=== PATIENT | male | born 1960 | race Caucasian/White ===

== ENCOUNTER 2018-04-03 14:00 | Inpatient (IN) | payer BC ==
[2018-04-16] MEDS ORDERED: Dexamethasone 4 mg/ml Vial ONE (06:10)
[2018-04-16] MEDS ORDERED: Midazolam HCl 2 mg/2 ml Vial ONE (06:10)
[2018-04-16] MEDS ORDERED: Fentanyl 100 MCG/2 ML VIAL ONE ×3 (06:10→13:32)
[2018-04-16] MEDS ORDERED: Lidocaine 1% (PF) 30 ML VIAL ONE (06:43)
[2018-04-16] MEDS ORDERED: Fentanyl 250 MCG/5 ML VIAL ONE (07:01)
[2018-04-16] MEDS ORDERED: Ondansetron HCl/PF 4 MG/2 ML Vial IVP PRN ×2 (07:05→11:08)
[2018-04-16] MEDS ORDERED: cefOXitin Sodium/Dextrose,Iso 2 GM in Premix Bag 1 BAG IVPB SCH (07:15)
[2018-04-16] MEDS ORDERED: Albumin 5% 0 ML ONE (08:51)
[2018-04-16] MEDS ORDERED: Insulin Regular 300 UNITS/3 ML VIAL ONE (09:36)
[2018-04-16] MEDS ORDERED: Indocyanine Green 25 MG/10 ML VIAL ONE (09:58)
[2018-04-16] MEDS ORDERED: Albuterol Sulfate HFA (OR ONLY) ONE (10:35)
[2018-04-16] MEDS ORDERED: ceFOXitin 1 GM VIAL ONE (10:51)
[2018-04-16] MEDS ORDERED: Promethazine HCl 25 MG/ML VIAL IM PRN ×2 (11:08→14:33)
[2018-04-16] MEDS ORDERED: Promethazine HCl 25 MG/ML VIAL SLOW IVP PRN (11:08)
[2018-04-16] MEDS ORDERED: hydrALAZINE 20 MG/ML VIAL ONE (12:45)
[2018-04-16] MEDS ORDERED: hydrALAZINE 20 MG/ML VIAL SLOW IVP PRN (14:33)
[2018-04-16] MEDS ORDERED: Fentanyl 100 MCG/2 ML VIAL SLOW IVP PRN (14:33)
[2018-04-16] MEDS ORDERED: Ondansetron PF 4 MG/2 ML Vial IVP PRN (14:33)
[2018-04-16] MEDS ORDERED: Post-Op Insulin Drip Protocol IVPB ONE (14:33)
[2018-04-16] MEDS ORDERED: Dextrose 50% Abboject 50 ML SYRINGE SLOW IVP PRN (14:42)
[2018-04-16] MEDS ORDERED: Insulin Regular 300 UNITS/3 ML VIAL SC PRN (14:42)
[2018-04-16] MEDS ORDERED: Dextrose 5% in Water 1,000 ML IV PRN (14:42)
[2018-04-16] MEDS ORDERED: Bupivacaine HCl 0.5%/Epinephrine 1:200,000/PF 30 ml Vial ONE (15:14)
[2018-04-16] MEDS: Acetaminophen 1,000 MG in Premix Bag 1 BAG IVPB SCH ×2 (15:14→20:24)
[2018-04-16] MEDS: Sodium Chloride 0.9% 1,000 ML IV SCH (16:18)
[2018-04-16] MEDS: Fentanyl 100 MCG/2 ML VIAL SLOW IVP PRN ×3 (17:54→22:06)
[2018-04-16] MEDS: Famotidine/PF 20 mg/2ml Vial SLOW IVP SCH (20:24)
[2018-04-16] MEDS: Enoxaparin Sodium 40 MG/0.4 ML SYRINGE SC SCH (20:24)
[2018-04-16] MEDS: cefOXitin Sodium/Dextrose,Iso 2 GM in Premix Bag 1 BAG IVPB SCH (20:25)
[2018-04-16] MEDS: Famotidine 20 MG TAB PO SCH (20:29)
[2018-04-16] MEDS ORDERED: Lidocaine 1% PF 5 ML VIAL ONE (22:43)
[2018-04-16] MEDS ORDERED: Glycopyrrolate 0.2 MG/ML 5 ML SYRINGE ONE (22:43)
[2018-04-16] MEDS ORDERED: Succinylcholine Chloride 20 MG/ML 10 ml SYRINGE FS ONE (22:43)
[2018-04-16] MEDS ORDERED: Ondansetron PF 4 MG/2 ML Vial ONE (22:43)
[2018-04-16] MEDS ORDERED: PROPOFOL 200 MG/20 ML VIAL ONE (22:43)
[2018-04-17] MEDS: Fentanyl 100 MCG/2 ML VIAL SLOW IVP PRN ×5 (01:20→23:04)
[2018-04-17] MEDS: Acetaminophen 1,000 MG in Premix Bag 1 BAG IVPB SCH ×2 (02:11→09:13)
[2018-04-17] MEDS: cefOXitin Sodium/Dextrose,Iso 2 GM in Premix Bag 1 BAG IVPB SCH (03:05)
[2018-04-17] MEDS: Sodium Chloride 0.9% 1,000 ML IV SCH ×2 (03:06→07:00)
[2018-04-17 04:54] LABS: #Lymphocytes 0.7 thou/uL (1.20-3.40); #Monocytes 0.9 thou/uL (0.11-0.59); #Neutrophils 13.8 thou/uL (1.40-6.50); %Basophils 0.1 % (0.0-1.0); %Lymphocytes 4.3 % (21.0-51.0); %Monocytes 5.7 % (0.0-10.0); %Neutrophils 89.9 % (42.0-75.0); Hemoglobin 10.2 g/dL (14.0-18.0); Mean Corpuscular HGB CONC 32.7 g/dL (32.0-36.0); Mean Corpuscular Hemoglobin 26.6 pg (27.0-31.0); Mean Corpuscular Volume 81.5 fL (78.0-98.0); Mean Platelet Volume 9.8 fL (7.4-10.4); Platelet Count 221 thou/uL (130-400); RBC Distribution Width 13.9 % (11.5-14.5); Red Blood Cell (RBC) Count 3.83 mill/uL (4.70-6.10); White Blood Cell (WBC) Count 15.4 thou/uL (4.8-10.8)
[2018-04-17 05:10] LABS: Anion Gap 15 mmol/L (10-20); BUN (Urea Nitrogen) 20 mg/dL (8.4-25.7); Calc. Creatinine Clearance 72 mL/min (70-130); Calcium 8.2 mg/dL (7.8-10.44); Carbon Dioxide 20 mmol/L (22-29); Chloride 105 mmol/L (98-107); Estimated GFR-MDRD 44; Glucose 160 mg/dL (70-105); Potassium 4.4 mmol/L (3.5-5.1); Sodium 136 mmol/L (136-145)
[2018-04-17] MEDS ORDERED: Sodium Chloride 0.9% 500 ML IV SCH (08:30)
[2018-04-17] MEDS: Famotidine 20 MG TAB PO SCH ×2 (08:36→20:24)
[2018-04-17] MEDS: Famotidine/PF 20 mg/2ml Vial SLOW IVP SCH ×2 (08:39→20:25)
--- NOTE | 2018-04-17 13:42 | OP ---
DATE OF PROCEDURE: 04/16/2018 PREOPERATIVE DIAGNOSIS: Ascending colon mass. POSTOPERATIVE DIAGNOSIS: Ascending colon mass. PROCEDURE PERFORMED: Da Casey laparoscopic right colectomy with isoperistaltic anastomosis. ANESTHESIA: General. ESTIMATED BLOOD LOSS: 50 mL. COMPLICATIONS: None. SPECIMEN: Right colon. TECHNIQUE: The patient has had mechanical and antibiotic bowel prep preop. He underwent tap blocks in preop holding, taken to the operating room and laid supine on operating room table. After general anesthetic was obtained, a Owusu was placed. The abdomen was prepped and draped in a sterile fashion. Left subcostal 5 mm Optiview trocar was placed in usual fashion and high-flow pneumoperitoneum was obtained. Left upper lateral 11 mm assist port was placed. Robot camera port was placed just to the left of umbilicus. Robot assist port was placed in the left lower quadrant. The 5 mm subcostal port was switched out to a robot stapler port. The patient was placed in Trendelenburg position. All ports were docked to the robot. The right colon mesentery was mobilized in a medial to lateral nature. The ileocolic vessels were isolated and taken low. Right ureter was found excluded from the dissection. Lateral attachments were taken down using cautery. Hepatic flexure was mobilized. Care was taken to avoid injury to the duodenum. Robot vessel sealer was used to take the small bowel mesentery right up towards the small bowel in the terminal ileum area. Robot stapler was fired across the proximal transverse colon. A reload was fired across the terminal ileum. The intestine was able to brought up against the colon in isoperistaltic fashion. It was held using a Vicryl suture placed through the end of the staple line of the colon, the more proximal small bowel, and mesenteric. This was used to hold the two ends together. Enterotomy was made on the end of the small bowel and more distal on the transverse colon, and an isoperistaltic anastomosis was performed by firing a stapler with the robot, then closing the common enterotomy colotomy using 2 rows of Vicryl running suture. There was no tension on the anastomosis. No bleeding in the abdomen. All needles were accounted for and removed from the abdomen. The robot stapler port was closed using GraNee needle 0 Vicryl tie. All ports were removed under camera visualization without bleeding. A pneumoperitoneum was let down. Muscle-splitting incision made in the right lower quadrant and the specimen was removed using Miki wound retractor. This fascial defect was closed in 2 layers using PDS suture. This wound was irrigated using sterile solution and closed using 3-0 Vicryl, 4-0 Monocryl, and Dermabond. The patient was sent to Recovery in stable condition. All instrument counts, needle counts, and lap counts were correct. Job ID: [id number]
[2018-04-17] MEDS ORDERED: Sodium Chloride 0.9% 1,000 ML IV SCH (13:57)
[2018-04-17] MEDS ORDERED: Dextrose 5% in Water 1,000 ML IV PRN (14:01)
[2018-04-17] MEDS ORDERED: Dextrose 50% Abboject 50 ML SYRINGE SLOW IVP PRN (14:01)
[2018-04-17] MEDS ORDERED: Acetaminophen 1,000 MG in Premix Bag 1 BAG IVPB PRN (14:10)
--- NOTE | 2018-04-17 14:51 | PRG ---
DATE OF SERVICE: 04/17/2018 SUBJECTIVE: Postop day one right colectomy. Mr. García was a little dizzy when he stood up earlier. His sugars were fairly well controlled. No significant nausea. He is on the clear liquid diet. OBJECTIVE: VITAL SIGNS: He is afebrile. Vital signs are stable now. He is due to void after the catheter has removed. ABDOMEN: Soft, appropriately tender, minimally distended. Wounds are healing well. LABORATORY DATA: White blood cell count is 15, hemoglobin 10. Sugars are 177 to 249. ASSESSMENT: Postop day one, right colectomy. We will stop insulin drip. Transferred to floor where he can be more active. Job ID: [id number]
[2018-04-17] MEDS: Insulin NPH/Reg Insulin Hm 300 UNITS/3 ML VIAL SC SCH (15:19)
[2018-04-17] MEDS: Losartan 25 MG TAB PO SCH (20:24)
[2018-04-17] MEDS: Hydrochlorothiazide 25 MG TAB PO SCH (20:24)
[2018-04-17] MEDS: Enoxaparin Sodium 40 MG/0.4 ML SYRINGE SC SCH (20:25)
[2018-04-17] MEDS ORDERED: Non-Formulary Item 1 EACH (Losartan Potassium [Losartan Potassium] 1 TAB) PO SCH (21:00)
[2018-04-17] MEDS ORDERED: Hydrochlorothiazide 25 MG TAB PO SCH (21:00)
[2018-04-18] MEDS: HumaLOG 300 UNITS/3 ML VIAL SC PRN ×4 (00:34→23:19)
[2018-04-18] MEDS: Fentanyl 100 MCG/2 ML VIAL SLOW IVP PRN ×4 (01:52→23:24)
[2018-04-18 04:56] LABS: #Basophils 0.1 thou/uL (0.0-0.2); #Lymphocytes 1.3 thou/uL (1.20-3.40); #Monocytes 1.6 thou/uL (0.11-0.59); #Neutrophils 13.3 thou/uL (1.40-6.50); %Basophils 0.3 % (0.0-1.0); %Eosinophils 0.1 % (0.0-10.0); %Lymphocytes 7.9 % (21.0-51.0); %Monocytes 9.9 % (0.0-10.0); %Neutrophils 81.9 % (42.0-75.0); Hemoglobin 7.5 g/dL (14.0-18.0); Mean Corpuscular HGB CONC 32.6 g/dL (32.0-36.0); Mean Corpuscular Volume 82.7 fL (78.0-98.0); Platelet Count 222 thou/uL (130-400); RBC Distribution Width 14.1 % (11.5-14.5); Red Blood Cell (RBC) Count 2.78 mill/uL (4.70-6.10); White Blood Cell (WBC) Count 16.3 thou/uL (4.8-10.8)
[2018-04-18 05:16] LABS: Anion Gap 14 mmol/L (10-20); BUN (Urea Nitrogen) 28 mg/dL (8.4-25.7); Calc. Creatinine Clearance 71 mL/min (70-130); Calcium 8.6 mg/dL (7.8-10.44); Carbon Dioxide 24 mmol/L (22-29); Chloride 100 mmol/L (98-107); Estimated GFR-MDRD 44; Glucose 310 mg/dL (70-105); Potassium 4.7 mmol/L (3.5-5.1); Sodium 133 mmol/L (136-145)
[2018-04-18] MEDS: Insulin NPH/Reg Insulin Hm 300 UNITS/3 ML VIAL SC SCH ×2 (08:29→17:41)
[2018-04-18] MEDS: Famotidine 20 MG TAB PO SCH ×2 (08:29→20:30)
[2018-04-18] MEDS: Famotidine/PF 20 mg/2ml Vial SLOW IVP SCH ×2 (08:29→20:32)
[2018-04-18 14:48] LABS: #Lymphocytes 1.2 thou/uL (1.20-3.40); #Monocytes 1.5 thou/uL (0.11-0.59); #Neutrophils 12.3 thou/uL (1.40-6.50); %Basophils 0.2 % (0.0-1.0); %Eosinophils 0.2 % (0.0-10.0); %Lymphocytes 8.2 % (21.0-51.0); %Monocytes 10.1 % (0.0-10.0); %Neutrophils 81.3 % (42.0-75.0); Hemoglobin 6.9 g/dL (14.0-18.0); Mean Corpuscular HGB CONC 32.4 g/dL (32.0-36.0); Mean Corpuscular Hemoglobin 26.6 pg (27.0-31.0); Mean Corpuscular Volume 82.2 fL (78.0-98.0); Mean Platelet Volume 9.9 fL (7.4-10.4); Platelet Count 227 thou/uL (130-400); RBC Distribution Width 13.9 % (11.5-14.5); Red Blood Cell (RBC) Count 2.61 mill/uL (4.70-6.10); White Blood Cell (WBC) Count 15.1 thou/uL (4.8-10.8)
[2018-04-18] MEDS: Acetaminophen 500 MG TAB PO PRN ×2 (15:40→23:25)
--- NOTE | 2018-04-18 17:08 | CT ---
CT OF ABDOMEN AND PELVIS PERFORMED WITH CONTRAST ENHANCEMENT: 04/18/18 HISTORY: Patient had laparoscopic resection of right colon and developed a low hemoglobin. This was done to ev aluate for significant bleed. Limited contrast due to low GFR. No oral contrast administered. There are bibasilar atelectatic lung changes seen with tiny effusions. The liver, spleen, and pancreas regions are unremarkable. The gallbladder is somewhat elongated in ap pearance. Right and left adrenal gland and right and left kidneys are normal in size. Postoperative changes the right colon are noted. Surgical chain type sutures are present in this viji on. There is numerous unopacified small bowel loops in this area. This makes it difficult to evaluate for peritoneal blood versus unopacified bowel. There is some fluid present in this region and fluid density along the liver which could just represent ascites related to the surgery. It could possibly indicate a subcapsular hematoma. Some of the unopacified density in the right mid abdomen inferior to the surgical site is of somewhat higher density. I still favor that this represents unopacified aurora l rather than blood. Also of note is a fat density mass-like area in the left abdomen. It measures approximately 12 cm in size. It arises directly anterior to Gerota's fascia on the left side. The only unusual feature to th is is it does appear to displace some of the small bowel loops in this area and the possibility that this represents a fat containing retroperitoneal mass is not excluded. A low grade liposarcoma is not totally excluded. Some of this may be on the basis of the surgery and a followup examination would b e recommended. CT OF PELVIS PERFORMED WITH CONTRAST ENHANCEMENT: No significant free fluid noted. Review of osseous structures show some arthritic changes of the spine. Lipoma is seen along the left posterolateral abdominal wall of incidental note. IMPRESSION: 1. Bibasilar lung changes consistent with atelectasis or infiltrate with tiny effusions. 2. Free fluid seen within the abdomen. There is fluid around the liver which could be related to some ascites. It could potentially be a subcapsular hematoma. There is also fluid density tracking i n the right pericolic gutter. 3. Postop right hemicolectomy change. Numerous unopacified bowel loops in this region make asses sment difficult for intermingled hematoma in this area. If patient's hemoglobin continues falling, CT with oral contrast may be helpful. 4. Fat density lesion in the left side of the abdomen directly anterior to Gerota's fascia on th e left. It measures 12 cm in size. One feature of this that is worrisome is that it appears to displa ce small bowel loops. It could indicate the possibility of some type of low grade liposarcoma. I woul d recommend followup CT imaging in approximately two months after some of the resolution of the posto p change may make assessment of this area easier. Findings discussed with Dr. Quintanilla. POS: [facility]
[2018-04-18] MEDS: Enoxaparin Sodium 40 MG/0.4 ML SYRINGE SC SCH (18:10)
--- NOTE | 2018-04-18 18:50 | PRG ---
DATE OF SERVICE: 04/18/2018 SUBJECTIVE: Mr. García is status post right colectomy on 04/16/2018. He states that he is doing well. He has had bowel movements and is tolerating his diet without nausea or abdominal pain. He denies any shortness of breath, chest pain, lightheadedness, or dizziness, and has been ambulating without problems. On physical examination, his wounds are healing well. His vital signs are stable. Bowel sounds are presents. However, he has had a significant decrease in his H and H from 10 and 31 yesterday to 7.5 and 23 today. I rechecked this afternoon and had dropped a little further to 6.9 and 21. He denies any gross blood in his stool and the nurse confirms this, so I sent him for a CT scan. He has a small amount of free fluid around the liver and in the paracolic gutter, but no large hemoperitoneum. I suspect that his anemia is likely multifactorial and we will simply observe this for now. If he drops any further, he may require transfusion, but if he stabilizes and remains asymptomatic, he will likely go home tomorrow. Job ID: [id number]
[2018-04-18] MEDS: Losartan 25 MG TAB PO SCH (20:31)
[2018-04-18] MEDS: Hydrochlorothiazide 25 MG TAB PO SCH (20:32)
[2018-04-19] MEDS: Fentanyl 100 MCG/2 ML VIAL SLOW IVP PRN ×3 (04:22→11:03)
[2018-04-19] MEDS: HumaLOG 300 UNITS/3 ML VIAL SC PRN ×2 (06:22→14:19)
[2018-04-19 06:34] LABS: #Lymphocytes 1.5 thou/uL (1.20-3.40); #Monocytes 1.1 thou/uL (0.11-0.59); #Neutrophils 8.9 thou/uL (1.40-6.50); %Basophils 0.1 % (0.0-1.0); %Eosinophils 0.4 % (0.0-10.0); %Lymphocytes 12.6 % (21.0-51.0); %Monocytes 9.6 % (0.0-10.0); %Neutrophils 77.3 % (42.0-75.0); Hemoglobin 6.5 g/dL (14.0-18.0); Mean Corpuscular HGB CONC 32.4 g/dL (32.0-36.0); Mean Corpuscular Hemoglobin 26.6 pg (27.0-31.0); Mean Platelet Volume 9.7 fL (7.4-10.4); Platelet Count 185 thou/uL (130-400); RBC Distribution Width 14.1 % (11.5-14.5); Red Blood Cell (RBC) Count 2.44 mill/uL (4.70-6.10); White Blood Cell (WBC) Count 11.5 thou/uL (4.8-10.8)
[2018-04-19] MEDS: Famotidine 20 MG TAB PO SCH ×2 (08:37→21:52)
[2018-04-19] MEDS: Insulin NPH/Reg Insulin Hm 300 UNITS/3 ML VIAL SC SCH ×2 (08:47→17:46)
[2018-04-19] MEDS: Famotidine/PF 20 mg/2ml Vial SLOW IVP SCH ×2 (08:52→21:53)
[2018-04-19 16:49] VITALS: BMI 32.3
[2018-04-19 20:24] LABS: #Basophils 0.1 thou/uL (0.0-0.2); #Eosinphils 0.1 thou/uL (0.0-0.7); #Monocytes 1.1 thou/uL (0.11-0.59); #Neutrophils 10.4 thou/uL (1.40-6.50); %Basophils 0.5 % (0.0-1.0); %Eosinophils 0.5 % (0.0-10.0); %Lymphocytes 14.9 % (21.0-51.0); %Monocytes 7.9 % (0.0-10.0); %Neutrophils 76.3 % (42.0-75.0); Hemoglobin 8.5 g/dL (14.0-18.0); Mean Corpuscular HGB CONC 32.3 g/dL (32.0-36.0); Mean Corpuscular Hemoglobin 26.6 pg (27.0-31.0); Mean Corpuscular Volume 82.5 fL (78.0-98.0); Mean Platelet Volume 9.8 fL (7.4-10.4); Platelet Count 236 thou/uL (130-400); RBC Distribution Width 14.3 % (11.5-14.5); Red Blood Cell (RBC) Count 3.19 mill/uL (4.70-6.10); White Blood Cell (WBC) Count 13.7 thou/uL (4.8-10.8)
--- NOTE | 2018-04-19 20:36 | PRG ---
DATE OF SERVICE: 04/19/2018 SUBJECTIVE: Mr. García is doing well today. He did have a unit of blood transfused. He feels much better. OBJECTIVE: VITAL SIGNS: 99.7, 72, 154/65. He does not feel his leak. His hemoglobin will be rechecked in the evening and in the morning. He is tolerating his diet. He has had 3 bowel movements. He describes them as dark, but not bloody. LUNGS: Clear to auscultation. CARDIAC: Regular rhythm without murmur or gallop. ABDOMEN: Soft, nontender and nondistended. EXTREMITIES: Unremarkable. ASSESSMENT AND PLAN: Bleeding of uncertain etiology. A CAT scan of his abdomen and pelvis obtained yesterday at 3:33 p.m. was unremarkable. There was some free fluid in the abdomen, which was described as possibly related to ascites, but this may represent some postoperative bleeding as there is no evidence of gastrointestinal bleeding. Pathology is pending. Postoperative bleeding. Check a CBC tonight and in the morning. If he is stable, consider discharge to home in the morning. Job ID: [id number]
[2018-04-19] MEDS: Enoxaparin Sodium 40 MG/0.4 ML SYRINGE SC SCH (21:51)
[2018-04-19] MEDS: Losartan 25 MG TAB PO SCH (21:52)
[2018-04-19] MEDS: Hydrochlorothiazide 25 MG TAB PO SCH (21:52)
[2018-04-20] MEDS: HumaLOG 300 UNITS/3 ML VIAL SC PRN ×3 (00:02→13:05)
[2018-04-20] MEDS: Acetaminophen 500 MG TAB PO PRN (00:03)
[2018-04-20 06:12] LABS: #Eosinphils 0.2 thou/uL (0.0-0.7); #Lymphocytes 1.5 thou/uL (1.20-3.40); #Neutrophils 9.8 thou/uL (1.40-6.50); %Basophils 0.4 % (0.0-1.0); %Eosinophils 1.5 % (0.0-10.0); %Lymphocytes 11.7 % (21.0-51.0); %Monocytes 8.3 % (0.0-10.0); %Neutrophils 78.1 % (42.0-75.0); Mean Corpuscular HGB CONC 33.3 g/dL (32.0-36.0); Mean Corpuscular Hemoglobin 27.4 pg (27.0-31.0); Mean Corpuscular Volume 82.2 fL (78.0-98.0); Mean Platelet Volume 9.7 fL (7.4-10.4); Platelet Count 237 thou/uL (130-400); RBC Distribution Width 14.3 % (11.5-14.5); Red Blood Cell (RBC) Count 2.91 mill/uL (4.70-6.10); White Blood Cell (WBC) Count 12.6 thou/uL (4.8-10.8)
[2018-04-20 06:34] LABS: Anion Gap 14 mmol/L (10-20); BUN (Urea Nitrogen) 21 mg/dL (8.4-25.7); Calc. Creatinine Clearance 93 mL/min (70-130); Calcium 8.8 mg/dL (7.8-10.44); Carbon Dioxide 25 mmol/L (22-29); Chloride 99 mmol/L (98-107); Estimated GFR-MDRD 59; Glucose 290 mg/dL (70-105); Potassium 3.9 mmol/L (3.5-5.1); Sodium 134 mmol/L (136-145)
[2018-04-20] MEDS: Insulin NPH/Reg Insulin Hm 300 UNITS/3 ML VIAL SC SCH (08:34)
[2018-04-20] MEDS: Famotidine 20 MG TAB PO SCH (08:35)
[2018-04-20] MEDS: Famotidine/PF 20 mg/2ml Vial SLOW IVP SCH (08:36)
[2018-04-20 13:13] LABS: #Eosinphils 0.2 thou/uL (0.0-0.7); #Lymphocytes 1.2 thou/uL (1.20-3.40); #Neutrophils 8.6 thou/uL (1.40-6.50); %Basophils 0.1 % (0.0-1.0); %Eosinophils 1.6 % (0.0-10.0); %Lymphocytes 10.9 % (21.0-51.0); %Monocytes 9.2 % (0.0-10.0); %Neutrophils 78.2 % (42.0-75.0); Mean Corpuscular HGB CONC 32.6 g/dL (32.0-36.0); Mean Corpuscular Volume 82.8 fL (78.0-98.0); Mean Platelet Volume 9.5 fL (7.4-10.4); Platelet Count 250 thou/uL (130-400); RBC Distribution Width 14.2 % (11.5-14.5); Red Blood Cell (RBC) Count 2.96 mill/uL (4.70-6.10); White Blood Cell (WBC) Count 11.1 thou/uL (4.8-10.8)
[2018-04-20 13:33] VITALS: BP 139/70; TEMP 98
--- NOTE | 2018-04-20 18:55 | DIS ---
DATE OF ADMISSION: 04/16/2018 DATE OF DISCHARGE: 04/20/2018 FINAL DIAGNOSES: 1. Ascending colon mass. 2. Postoperative anemia. HISTORY: Mr. García is a 57-year-old man, who was admitted for right hemicolectomy by Dr. Flood. He underwent this initially and recovered well. He had rapid return of bowel function and his diet and activities were able to be advanced. His pain was controlled and he was tolerating his diet. However, he was noted to have a significant decrease in his hemoglobin and hematocrit from preop. His hemoglobin went from 13.2 before his operations, 10.2 the day after, and 7.5 on postoperative day 2. The following morning, it had dropped to 6.5, and he was symptomatic with some lightheadedness and dyspnea on exertion, so he was transfused 1 unit of packed red blood cells with improvement in his symptoms. His hemoglobin came up to 8 and remained stable. He denied throughout any gross blood in his stool and this was confirmed by a nurse observation. A CT of the abdomen was performed and he had a small amount of fluid in the paracolic gutter and pelvis, but this did not appear to be a large amount. He was discharged home with instructions to call or return if he develops any recurrent symptoms of anemia. He is to continue his home medications and also take a multivitamin with iron daily. He has not taken his aspirin in about a week and was advised to hold it for 1 week longer and then resume it. He is to follow up with Dr. Flood as scheduled and to refrain from heavy lifting. Job ID: [id number]
== END 2018-04-20 15:46 | disposition home or self-care (01) | DRG 331 ==
LOC: CANSCHIN → SURG A 04-16 06:04 → IMCU/EMU 04-16 16:04 → SURG B 04-18 07:32
PROVIDERS: ADMIT Surgery; ATTEND Surgery
PROC: 0DBK4ZZ Excision of Ascending Colon, Percutaneous Endoscopic Approach (ICD-10-PCS; principal; 2018-04-16)
PROC: 8E0W4CZ Robotic Assisted Procedure of Trunk Region, Percutaneous Endoscopic Approach (ICD-10-PCS; 2018-04-16)
DX: K63.89 Other specified diseases of intestine (principal); D64.9 Anemia, unspecified
CPT/HCPCS: 36415; 36416; 36430; 74177; 80048; 83036; 85025; 86850; 86900; 86901; 90471; 90732; 93005; 93010; G0009; J0131; J0360; J0670; J0694; J1100; J1650; J1815; J2001; J2250; J2405; J2704; J3010; J3490; J7050; P9016; P9045; S0028

== ENCOUNTER 2018-04-14 13:10 | Outpatient (CLI) | payer BC ==
[2018-04-14 14:46] LABS: #Basophils 0.1 thou/uL (0.0-0.2); #Eosinphils 0.2 thou/uL (0.0-0.7); #Lymphocytes 1.4 thou/uL (1.20-3.40); #Monocytes 0.8 thou/uL (0.11-0.59); #Neutrophils 8.7 thou/uL (1.40-6.50); %Basophils 0.5 % (0.0-1.0); %Eosinophils 1.7 % (0.0-10.0); %Lymphocytes 12.3 % (21.0-51.0); %Monocytes 6.8 % (0.0-10.0); %Neutrophils 78.7 % (42.0-75.0); Hemoglobin 13.2 g/dL (14.0-18.0); Mean Corpuscular HGB CONC 31.8 g/dL (32.0-36.0); Mean Corpuscular Hemoglobin 26.3 pg (27.0-31.0); Mean Corpuscular Volume 82.6 fL (78.0-98.0); Mean Platelet Volume 10.4 fL (7.4-10.4); Platelet Count 217 thou/uL (130-400); RBC Distribution Width 14.2 % (11.5-14.5); Red Blood Cell (RBC) Count 5.02 mill/uL (4.70-6.10); White Blood Cell (WBC) Count 11.1 thou/uL (4.8-10.8)
[2018-04-14 14:55] LABS: Hemoglobin A1c 8.9 % (4.0-6.0)
[2018-04-14 15:05] LABS: Anion Gap 14 mmol/L (10-20); BUN (Urea Nitrogen) 28 mg/dL (8.4-25.7); Calc. Creatinine Clearance 0 mL/min (70-130); Calcium 9.4 mg/dL (7.8-10.44); Carbon Dioxide 26 mmol/L (22-29); Chloride 97 mmol/L (98-107); Estimated GFR-MDRD 46; Glucose 494 mg/dL (70-105); Potassium 4.5 mmol/L (3.5-5.1); Sodium 132 mmol/L (136-145)
--- NOTE | 2018-04-14 17:57 | EKG ---
Test Reason : Blood Pressure : / mmHG Vent. Rate : 057 BPM Atrial Rate : 057 BPM P-R Int : 150 ms QRS Dur : 096 ms QT Int : 466 ms P-R-T Axes : 017 026 034 degrees QTc Int : 453 ms Sinus bradycardia Otherwise normal ECG When compared with ECG of 14-DEC-2012 09:15, No significant change was found Confirmed by THERESA KAT ([id number]) on 04/14/2018 5:56:50 PM Referred By: AL Confirmed By:THERESA KAT
== END 2018-04-14 13:11 | disposition home or self-care (01) ==
LOC: LABBT 13:10
PROVIDERS: ATTEND Surgery
DX: Z01.818 Encounter for other preprocedural examination (principal); K63.9 Disease of intestine, unspecified
CPT/HCPCS: 80048; 83036; 85025; 93005; 93010

== ENCOUNTER 2023-11-25 09:09 | Outpatient (CLI) | payer BC | END 2023-11-25 09:10 | disposition home or self-care (01) | LOC: BICRAD 09:09 | PROVIDERS: ATTEND Specialist | DX: M54.50 Low back pain, unspecified (principal); M47.816 Spondylosis without myelopathy or radiculopathy, lumbar region | CPT/HCPCS: 72100 ==